=== PATIENT | female | born 2000 | race Hispanic/Latino ===

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

== ENCOUNTER 2018-04-05 03:44 | Emergency (ER) | payer MEDICAID ==
[2018-04-05] MEDS ORDERED: FAMOTIDINE 20MG TAB 20 MG TAB ONE (04:27)
== END 2018-04-05 04:51 | disposition home or self-care (01) ==
LOC: EDH 03:44
DX: O26.892 Other specified pregnancy related conditions, second trimester (principal); R10.13 Epigastric pain; Z3A.16 16 weeks gestation of pregnancy; Z98.890 Other specified postprocedural states; Z88.1 Allergy status to other antibiotic agents
CPT/HCPCS: 93005